=== PATIENT | male | born 1995 | race Caucasian/White ===

== ENCOUNTER 2018-03-11 18:26 | Emergency (ER) | payer SELFPAY ==
[~2018-03-11] VITALS: Ht 172.7 cm; Wt 83.4 kg
[2018-03-11] MEDS ORDERED: DIPH,PERTUSS(ACELL),TET VAC/PF 0.5 ML IM-VACC ONE ×2 (19:00→19:03)
[2018-03-11] MEDS ORDERED: ONDANSETRON 2MG/ML, 2ML IVPush ONE (19:00)
[2018-03-11] MEDS ORDERED: SODIUM CHLORIDE FLUSH 10ML SYR IVF ONE (19:00)
[2018-03-11] MEDS ORDERED: ONDANSETRON 2MG/ML, 2ML ONE (19:03)
[2018-03-11] MEDS ORDERED: MORPHINE SULFATE 4 MG/ML, 1ML ONE ×2 (19:03→20:02)
[2018-03-11] MEDS: MORPHINE SULFATE 4 MG/ML, 1ML IVPush PRN ×2 (19:16→20:09)
[2018-03-11] MEDS ORDERED: BACITRACIN ZINC OINT 500U/GM, 0.9 GM ONE ×2 (19:49→21:31)
[2018-03-11 19:56] LABS: MICROSCOPIC NOT IND
[2018-03-11 20:00] LABS: CULTURE INDICATED? NO
[2018-03-11 21:23] VITALS: BP 114/60
== END 2018-03-11 22:04 | disposition home or self-care (01) ==
LOC: ED 21:58
DX: S30.811A Abrasion of abdominal wall, initial encounter (principal); S30.810A Abrasion of lower back and pelvis, initial encounter; S60.512A Abrasion of left hand, initial encounter; V29.9XXA Motorcycle rider (driver) (passenger) injured in unspecified traffic accident, initial encounter; Y93.55 Activity, bike riding; Y92.89 Other specified places as the place of occurrence of the external cause; Y99.8 Other external cause status
CPT/HCPCS: 71045; 72170; 73130; 73564; 81003; 90471; 90715; 96374; 96375; 96376; 99285; J2405

== ENCOUNTER 2018-08-31 16:04 | Emergency (ER) | payer SELFPAY ==
[~2018-08-31] VITALS: Ht 185.4 cm; Wt 89.8 kg
[2018-08-31 16:24] VITALS: BP 152/93
== END 2018-08-31 17:17 | disposition home or self-care (01) ==
LOC: ED 17:05
DX: K08.89 Other specified disorders of teeth and supporting structures (principal); R05 Cough; R09.81 Nasal congestion
CPT/HCPCS: 71046; 99283